=== PATIENT | male | born 1940 | race African-American/Black ===

== ENCOUNTER 2018-09-25 06:40 | Observation (INO) | payer MEDICARE ==
[2018-09-15 10:13] LABS: BASOPHILS % 0.5 % (0.0-1.0); EOSINOPHILS # (AUTO) 0.1 (0.0-0.4); EOSINOPHILS % 1.3 % (0.0-6.0); HEMATOCRIT 42.8 % (38.2-49.6); HEMOGLOBIN 13.6 g/dL (14.0-18.0); LYMPHOCYTES # (AUTO) 1.2 (1.0-3.2); LYMPHOCYTES % 30.5 % (18.0-39.1); MEAN CORPUSCULAR HEMOGLOBIN 28.3 pg (28-32); MEAN CORPUSCULAR HGB CONC 31.8 g/dL (31-35); MONOCYTES # (AUTO) 0.5 (0.2-0.8); MONOCYTES % 11.5 % (4.4-11.3); NEUTROPHILS # (AUTO) 2.2 (2.1-6.9); NEUTROPHILS % 55.2 % (38.7-80.0); PLATELET COUNT 177 x10e3/uL (140-360); RED BLOOD COUNT 4.81 x10e6/uL (4.3-5.7); RED CELL DISTRIBUTION WIDTH 13.2 % (11.7-14.4)
[2018-09-15 10:27] LABS: ANION GAP 15.5 mmol/L (8-16); BLOOD UREA NITROGEN 14 mg/dL (7-26); BUN/CREATININE RATIO 13 (6-25); CALCIUM 9.3 mg/dL (8.4-10.2); CARBON DIOXIDE 27 mmol/L (22-29); CHLORIDE 104 mmol/L (98-107); CREATININE, SERUM 1.11 mg/dL (0.72-1.25); EST GLOMERULAR FILTRATION RATE > 60 ML/MIN (60-); GLUCOSE 170 mg/dL (74-118); POTASSIUM 4.5 mmol/L (3.5-5.1); SODIUM 142 mmol/L (136-145)
[~2018-09-25] VITALS: Ht 180.3 cm; Wt 114.8 kg
[~2018-09-25 06:40] MED LIST: ASPIRIN325 MG PO; ATORVASTATIN CA20 MG PO; BACLOFEN10 MG PO; CARVEDILOL25 MG PO; CYMBALTA30 MG PO; DICYCLOMINE HCL20 MG PO; FINASTERIDE5 MG PO; FLOMAX0.4 MG PO; GLIMEPIRIDE2 MG PO; KETOCONAZOLE15 GM TOP; LEVOTHYROXINE50 MCG PO; LOSARTAN POTAS100 MG PO; MONTELUKAST SOD10 MG PO; MYRBETRIQ50 MG PO; OMEPRAZOLE40 MG PO; TRAZODONE HCL50 MG PO; TRULICITY SC; ULTRAM50 MG PO; VESICARE5 MG PO
--- OUTSIDE RECORDS SUMMARY | 2018-09-25 06:44 | XMS REPORT | CCD ---
Author Author Auto Generated Organization [facility] Address Unknown Phone Unavailable Care Team Providers Care Exceptional Children Teacher Assistant Name Role Phone Yovani Seth Santiago CP Allergies, Adverse Reactions, Alerts Substance Reaction Status NKDA Active Medications Medication Instructions Start Date End Date Status [place] 5/325 oral 1 tab, PO, Q4-6H, PRN, 12 tab, as 05/22/2011 Ordered tablet needed for pain, Substitution Allowed, Maintenance Flexeril 10 mg oral 10 mg, PO, TID, PRN, 30 tab, Muscle 05/22/2011 06/01/2011 Ordered tablet Spasm, Substitution Allowed morphine Sulfate 4 mg, Route: IM, ONCE, Priority: 05/22/2011 05/22/2011 Completed STAT, Start date: 05/22/11 23:03:00, Stop date: 05/22/11 23:03:00 Vital Signs Most recent to oldest [Reference Range]: 1 Height 180.34 cm (05/22/2011 21:59:00) Weight 109.091 kg (05/22/2011 21:59:00)
--- OUTSIDE RECORDS SUMMARY | 2018-09-25 06:44 | XMS REPORT | Continuity of Care Document ---
Author Author [employer] Address Unknown Phone Unavailable Care Team Providers Care Reducer Name Role Phone [employer] Unavailable Unavailable Problems Problem Status Onset Date Classification Date Reported Comments Source 599.70 - HEMATURIA NOS Active 08/20/2011 [facility] Outpatient Imaging [facility] BLOOD IN URINE Active 07/29/2011 [facility] OFF BALANCE Active 05/21/2011 [facility] LEFT NECK PAIN Active 05/19/2011 [facility] RT SHOULDER PAIN Active [facility] [place] Medications Medication Details Route Status Patient Instructions Ordering Provider Order Date Source Singulair Substitution Allowed Active 07/30/2011 [facility] [place] 5/325 oral tablet Substitution Allowed, Maintenance Active 07/30/2011 [facility] meloxicam Substitution Allowed Active 07/30/2011 [facility] [place] 5/325 oral tablet 1 tab, PO, Q4-6H, PRN, 12 tab, as needed for pain, Substitution Allowed, Maintenance PO Active [facility] 05/23/2011 [facility] Flexeril 10 mg oral tablet 10 mg, PO, TID, PRN, 30 tab, Muscle Spasm, Substitution Allowed PO Active [facility] 05/23/2011 [facility] morphine Sulfate 4 mg, Route: IM, ONCE, Priority: STAT, Start date: 05/22/11 23:03:00, Stop date: 05/22/11 23:03:00 IM No Longer Active [facility] 05/23/2011 [facility] labetalol 10 mg, Route: IVP, Drug form: INJ, ONCE, Priority: STAT, Start date: 05/19/11 14:07:00, Stop date: 05/19/11 14:07:00 IVP No Longer Active José Antonio 05/19/2011 [facility] Saline Flush 0.9% 5 ml, Route: IVP, Drug Form: INJ, PRN, PRN Line Flush, Start date: 05/19/11 10:20:00, Duration: 24 hr, Stop date: 05/20/11 10:19:00 IVP No Longer Active José Antonio 05/19/2011 [facility] metFORmin Substitution Allowed Active 05/19/2011 [facility] Coreg Substitution Allowed Active 05/19/2011 [facility] Lipitor Substitution Allowed Active 05/19/2011 [facility] Allergies, Adverse Reactions, Alerts No Known Medication Allergies Immunizations No Data Provided for This Section Results Order Name Results Value Reference Range Date Interpretation Comments Source URINALYSIS UA Bacteria Occasional /HPF (07/30/2011 00:15:00) None Seen 07/30/2011 Normal [facility] URINALYSIS UA RBC 6-10 /HPF *ABN* (07/30/2011 00:15:00) 0 - 2 07/30/2011 ABN [facility] URINALYSIS UA Sq Epi Rare /LPF (07/30/2011 00:15:00) Few 07/30/2011 Normal [facility] URINALYSIS UA WBC 0-2 /HPF (07/30/2011 00:15:00) None Seen 07/30/2011 Normal [facility] URINALYSIS UA Nitrite Negative (07/30/2011 00:15:00) Negative 07/30/2011 Normal [facility] URINALYSIS UA Leuk Est Negative (07/30/2011 00:15:00) Negative 07/30/2011 Normal [facility] URINALYSIS UA Glucose Negative (07/30/2011 00:15:00) Negative 07/30/2011 Normal [facility] URINALYSIS UA Ketones Negative *NA* (07/30/2011 00:15:00) Negative 07/30/2011 NA [facility] URINALYSIS UA Bili Negative *NA* (07/30/2011 00:15:00) Negative 07/30/2011 NA [facility] URINALYSIS UA Blood Large *ABN* (07/30/2011 00:15:00) Negative 07/30/2011 ABN [facility] URINALYSIS UA Urobilinogen 0.2 0.1 - 1.0 07/30/2011 Normal [facility] URINALYSIS UA Turbidity Clear (07/30/2011 00:15:00) Clear 07/30/2011 Normal [facility] URINALYSIS UA Spec Grav <=1.030 07/30/2011 NA [facility] URINALYSIS UA pH 7.0 5.0 - 8.0 07/30/2011 Normal [facility] URINALYSIS UA Protein Trace *ABN* (07/30/2011 00:15:00) Negative 07/30/2011 ABN [facility] URINALYSIS UA Color pale pink Yellow 07/30/2011 NA [facility] URINALYSIS UA Bacteria Occasional /HPF (05/19/2011 13:20:00) None Seen 05/19/2011 Normal [facility] URINALYSIS UA RBC 0-2 /HPF (05/19/2011 13:20:00) 0 - 2 05/19/2011 Normal [facility] URINALYSIS UA WBC 0-2 /HPF (05/19/2011 13:20:00) None Seen 05/19/2011 Normal [facility] URINALYSIS UA Sq Epi Few /LPF (05/19/2011 13:20:00) Few 05/19/2011 Normal [facility] URINALYSIS UA Blood Negative (05/19/2011 13:20:00) Negative 05/19/2011 Normal [facility] URINALYSIS UA Urobilinogen 0.2 0.1 - 1.0 05/19/2011 Normal [facility] URINALYSIS UA Nitrite Negative (05/19/2011 13:20:00) Negative 05/19/2011 Normal [facility] URINALYSIS UA Leuk Est Negative (05/19/2011 13:20:00) Negative 05/19/2011 Normal [facility] URINALYSIS UA Glucose Negative (05/19/2011 13:20:00) Negative 05/19/2011 Normal [facility] URINALYSIS UA Protein 100 mg/dL *ABN* (05/19/2011 13:20:00) Negative 05/19/2011 ABN [facility] URINALYSIS UA Bili Negative *NA* (05/19/2011 13:20:00) Negative 05/19/2011 NA [facility] URINALYSIS UA Ketones Negative *NA* (05/19/2011 13:20:00) Negative 05/19/2011 NA [facility] URINALYSIS UA Spec Grav 1.025 <=1.030 05/19/2011 Normal [facility] URINALYSIS UA pH 6.5 5.0 - 8.0 05/19/2011 Normal [facility] URINALYSIS UA Color Yellow *NA* (05/19/2011 13:20:00) Yellow 05/19/2011 NA [facility] URINALYSIS UA Turbidity Clear (05/19/2011 13:20:00) Clear 05/19/2011 Normal [facility] CHEMISTRY CK MB 2.4 0.5 - 3.6 05/19/2011 Normal [facility] CHEMISTRY Potassium Lvl 4.3 3.5 - 5.1 05/19/2011 Normal [facility] CHEMISTRY CO2 32 24 - 32 05/19/2011 Normal [facility] CHEMISTRY Calcium Lvl 8.6 8.5 - 10.5 05/19/2011 Normal [facility] CHEMISTRY Chloride Lvl 102 95 - 109 05/19/2011 Normal [facility] CHEMISTRY Sodium Lvl 140 135 - 145 05/19/2011 Normal [facility] CHEMISTRY BUN 14 7 - 22 05/19/2011 Normal [facility] CHEMISTRY Creatinine Lvl 1.1 0.5 - 1.4 05/19/2011 Normal [facility] CHEMISTRY A/G Ratio 1.1 0.7 - 1.6 05/19/2011 Normal [facility] CHEMISTRY AGAP 10.3 10.0 - 20.0 05/19/2011 Normal [facility] CHEMISTRY B/C Ratio 13 6 - 25 05/19/2011 Normal [facility] CHEMISTRY Globulin 3.4 2.0 - 4.0 05/19/2011 Normal [facility] CHEMISTRY AST 14 0 - 37 05/19/2011 Normal [facility] CHEMISTRY Bili Total 0.5 0.2 - 1.3 05/19/2011 Normal [facility] CHEMISTRY Total Protein 7.1 6.4 - 8.4 05/19/2011 Normal [facility] CHEMISTRY ALT 33 0 - 65 05/19/2011 Normal [facility] CHEMISTRY Alk Phos 44 39 - 136 05/19/2011 Normal [facility] CHEMISTRY Albumin Lvl 3.7 3.5 - 5.0 05/19/2011 Normal [facility] CHEMISTRY Glucose Lvl 145 70 - 99 05/19/2011 [facility] <sup>2</sup>Interpretive Data: Adult reference range values reflect the clinical guidelines of the [place] [employer]. [facility] CHEMISTRY Total CK 247 12 - 191 05/19/2011 HI [facility] CHEMISTRY Troponin-I <0.02 0.00 - 0.40 05/19/2011 Normal [facility] CHEMISTRY CK MB Index 1.0 0.0 - 2.5 05/19/2011 Normal [facility] HEMATOLOGY MCHC 32.9 32.0 - 36.0 05/19/2011 Normal [facility] HEMATOLOGY MCH 31.0 27.0 - 31.0 05/19/2011 Normal [facility] HEMATOLOGY MCV 94.2 80.0 - 94.0 05/19/2011 HI [facility] HEMATOLOGY WBC 8.2 3.7 - 10.4 05/19/2011 Normal [facility] HEMATOLOGY MPV 7.9 7.4 - 10.4 05/19/2011 Normal [facility] HEMATOLOGY Platelet 215 133 - 450 05/19/2011 Normal [facility] HEMATOLOGY RDW 13.0 11.5 - 14.5 05/19/2011 Normal [facility] HEMATOLOGY Hct 46.9 42.0 - 54.0 05/19/2011 Normal [facility] Hgb 15.4 14.0 - 18.0 05/19/2011 Normal [facility] RBC 4.98 4.70 - 6.10 05/19/2011 Normal [facility] PTT 24.8 22.9 - 35.8 05/19/2011 Normal <sup>4</sup>Interpretive Data: Heparin Therapeutic Range: 57 - 92 Seconds [facility] HEMATOLOGY PT 13.5 12.0 - 14.7 05/19/2011 Normal [facility] HEMATOLOGY INR 1.03 0.85 - 1.17 05/19/2011 Normal <sup>3</sup>Interpretive Data: RECOMMENDED RANGES FOR PROTIME INR: 2.0-3.0 for most medical and surgical thromboembolic states. 2.5-3.5 for artificial heart valves and recurrent embolism. INR SHOULD BE USED ONLY FOR PATIENTS ON STABLE ANTICOAGULANT THERAPY. [facility] HEMATOLOGY Monocytes # 0.6 0.0 - 0.8 05/19/2011 Normal [facility] HEMATOLOGY Lymphocytes # 1.1 1.0 - 5.5 05/19/2011 Normal [facility] HEMATOLOGY Eosinophils # 0.0 0.0 - 0.5 05/19/2011 Normal [facility] HEMATOLOGY Basophils # 0.0 0.0 - 0.2 05/19/2011 Normal [facility] HEMATOLOGY Segs-Bands # 6.5 1.5 - 8.1 05/19/2011 Normal [facility] HEMATOLOGY Basophils 0.2 0.0 - 1.0 05/19/2011 Normal [facility] HEMATOLOGY Eosinophils 0.2 0.0 - 4.0 05/19/2011 Normal [facility] HEMATOLOGY Segs 79.5 45.0 - 75.0 05/19/2011 HI [facility] HEMATOLOGY Monocytes 6.8 2.0 - 12.0 05/19/2011 Normal [facility] HEMATOLOGY Lymphocytes 13.3 20.0 - 40.0 05/19/2011 LOW [facility] Microbiology Culture: Blood 05/19/2011 [facility] Microbiology Culture: Blood 05/19/2011 [facility] BEDSIDE GLUCOSE TESTING Gluc POC Lifscn 168 70 - 99 05/19/2011 [facility] <sup>1</sup>Interpretive Data: Upper Reportable Limit: 200 mg/dL. [facility] Pathology Reports No Data Provided for This Section Diagnostic Reports Report Value Date Source Retroperitoneal Complete US Name: LARON LAMBERT : 1940 Ordering Physician: Thony Barillas Retroperitoneal Complete US : Nov 02, 2013 11:45:00 AM. CLINICAL INDICATION: Chronic kidney disease stage II Comparison Examination: None. FINDINGS: The right kidney measures 12.7 x 5.6 x 5.0 cm in length. The left kidney measures 13.8 x 5.4 x 5.0 cm in length. There is normal renal contour and morphology. There is slightly increased renal parenchymal echotexture consistent with medical renal disease. The right renal cortex measures 1.7 cm in thickness. The left renal cortex measures 1.9 cm in thickness. Several small anechoic cysts are noted within the left kidney. Both measure 1.6 cm in maximum dimension. There are no echogenic foci noted to suggest calculi. There are no perinephric fluid collections. There is no hydronephrosis or proximal ureterectasis. The Doppler images of the kidneys are grossly unremarkable. The visualized lower abdominal aorta, proximal common iliac arteries, inferior vena cava and retroperitoneal regions appear unremarkable. The urinary bladder is sonographically unremarkable. Bilateral ureteral jets were visualized. IMPRESSION: 1. Slightly echogenic kidneys consistent with medical renal disease. 2. No hydronephrosis. SL: 23 11/02/2013 [facility] Outpatient Imaging [facility] Consultation Notes No Data Provided for This Section Discharge Summaries No Data Provided for This Section History and Physicals No Data Provided for This Section Vital Signs Vital Sign Value Date Comments Source Weight 106.818 07/30/2011 [facility] Height 177.80 cm 07/30/2011 [facility] Weight 109.091 05/23/2011 [facility] Height 180.34 cm 05/23/2011 [facility] Height 180.34 cm 05/19/2011 [facility] Weight 106.818 05/19/2011 [facility] Encounters Location Location Details Encounter Type Encounter Number Reason For Visit Attending Provider ADM Date DC Date Status Source Not Sent Emergency [id number] JERSON CARMONA 05/19/2011 05/19/2011 Discharged [facility] Not Sent Emergency [id number] JOSELITO BAJWA 05/22/2011 05/22/2011 Discharged [facility] Not Sent Emergency [id number] ANKUR JAVED 07/29/2011 07/30/2011 Discharged [facility] OD [id number] 599.70 - HEMATURIA NOS ALO CORTEZ 08/22/2011 Active [facility] Outpatient Imaging [facility] Outpatient Imaging [facility] Out[facility] Diag Services [id number] Thony Bhatton 11/02/2013 11/03/2013 [facility] Outpatient Imaging [facility] [place] [facility] Patients [id number] Alessandra Mak 11/07/2015 12/07/2015 [facility] [place] Procedures No Data Provided for This Section Assessment and Plan No Data Provided for This Section Plan of Care No Data Provided for This Section Social History Social History Date Source No data available for this section 12/07/2015 [facility] [place] Family History No Data Provided for This Section Advance Directives No Data Provided for This Section Functional Status No Data Provided for This Section
--- OUTSIDE RECORDS SUMMARY | 2018-09-25 06:45 | XMS REPORT | Summary of Care ---
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
--- OUTSIDE RECORDS SUMMARY | 2018-09-25 06:45 | XMS REPORT | CCD ---
Author Author Auto Generated Organization [facility] Address Unknown Phone Unavailable Care Team Providers Care Lecturer In Marketing Name Role Phone Leta Bienvenido Barth CP Allergies, Adverse Reactions, Alerts Substance Reaction Status NKDA Active Medications Medication Instructions Start Date End Date Status Singulair Substitution Allowed 07/30/2011 Ordered [place] 5/325 oral Substitution Allowed, Maintenance 07/30/2011 Ordered tablet meloxicam Substitution Allowed 07/30/2011 Ordered Vital Signs Most recent to oldest [Reference Range]: 1 Height 177.80 cm (07/29/2011 23:12:00) Weight 106.818 kg (07/29/2011 23:12:00) Results URINALYSIS Most recent to oldest [Reference Range]: 1 UA Turbidity [Clear] Clear (07/30/2011 00:15:00) UA Color [Yellow] pale pink *NA* (07/30/2011 00:15:00) UA pH [5.0-8.0] 7.0 (07/30/2011 00:15:00) UA Spec Grav [<=1.030] <=1.005 *NA* (07/30/2011 00:15:00) UA Glucose [Negative] Negative (07/30/2011 00:15:00) UA Blood [Negative] Large *ABN* (07/30/2011 00:15:00) UA Ketones [Negative] Negative *NA* (07/30/2011 00:15:00) UA Protein [Negative] Trace *ABN* (07/30/2011 00:15:00) UA Urobilinogen [0.1-1.0 EU/dL] 0.2 EU/dL (07/30/2011 00:15:00) UA Bili [Negative] Negative *NA* (07/30/2011 00:15:00) UA Leuk Est [Negative] Negative (07/30/2011 00:15:00) UA Nitrite [Negative] Negative (07/30/2011 00:15:00) UA WBC [None Seen /HPF] 0-2 /HPF (07/30/2011 00:15:00) UA RBC [0-2 /HPF] 6-10 /HPF *ABN* (07/30/2011 00:15:00) UA Bacteria [None Seen /HPF] Occasional /HPF (07/30/2011 00:15:00) UA Sq Epi [Few /LPF] Rare /LPF (07/30/2011 00:15:00)
--- OUTSIDE RECORDS SUMMARY | 2018-09-25 06:45 | XMS REPORT | CCD ---
Author Author Auto Generated Organization [facility] Address Unknown Phone Unavailable Care Team Providers Care Director Engineering Name Role Phone Hayes Chou CP Allergies, Adverse Reactions, Alerts Substance Reaction Status NKDA Active Medications Medication Instructions Start Date End Date Status metFORmin Substitution Allowed 05/19/2011 Ordered Coreg Substitution Allowed 05/19/2011 Ordered Lipitor Substitution Allowed 05/19/2011 Ordered Saline Flush 0.9% 5 ml, Route: IVP, Drug Form: INJ, 05/19/2011 05/19/2011 Discontinued PRN, PRN Line Flush, Start date: 05/19/11 10:20:00, Duration: 24 hr, Stop date: 05/20/11 10:19:00 labetalol 10 mg, Route: IVP, Drug form: INJ, 05/19/2011 05/19/2011 Completed ONCE, Priority: STAT, Start date: 05/19/11 14:07:00, Stop date: 05/19/11 14:07:00 Vital Signs Most recent to oldest [Reference Range]: 1 Height 180.34 cm (05/19/2011 08:44:00) Weight 106.818 kg (05/19/2011 08:44:00) Results BEDSIDE GLUCOSE TESTING Most recent to oldest [Reference Range]: 1 Gluc POC Lifscn [70-99 mg/dL] 168 mg/dL 1 *HI* (05/19/2011 09:23:00) 1Interpretive Data: Upper Reportable Limit: 200 mg/dL. URINALYSIS Most recent to oldest [Reference Range]: 1 UA Turbidity [Clear] Clear (05/19/2011 13:20:00) UA Color [Yellow] Yellow *NA* (05/19/2011 13:20:00) UA pH [5.0-8.0] 6.5 (05/19/2011 13:20:00) UA Spec Grav [<=1.030] 1.025 (05/19/2011 13:20:00) UA Glucose [Negative] Negative (05/19/2011 13:20:00) UA Blood [Negative] Negative (05/19/2011 13:20:00) UA Ketones [Negative] Negative *NA* (05/19/2011 13:20:00) UA Protein [Negative mg/dL] 100 mg/dL *ABN* (05/19/2011 13:20:00) UA Urobilinogen [0.1-1.0 EU/dL] 0.2 EU/dL (05/19/2011 13:20:00) UA Bili [Negative] Negative *NA* (05/19/2011 13:20:00) UA Leuk Est [Negative] Negative (05/19/2011 13:20:00) UA Nitrite [Negative] Negative (05/19/2011 13:20:00) UA WBC [None Seen /HPF] 0-2 /HPF (05/19/2011 13:20:00) UA RBC [0-2 /HPF] 0-2 /HPF (05/19/2011 13:20:00) UA Bacteria [None Seen /HPF] Occasional /HPF (05/19/2011 13:20:00) UA Sq Epi [Few /LPF] Few /LPF (05/19/2011 13:20:00) CHEMISTRY Most recent to oldest [Reference Range]: 1 Sodium Lvl [135-145 mEq/L] 140 mEq/L (05/19/2011 10:40:00) Potassium Lvl [3.5-5.1 mEq/L] 4.3 mEq/L (05/19/2011 10:40:00) Chloride Lvl [95-109 mEq/L] 102 mEq/L (05/19/2011 10:40:00) CO2 [24-32 mEq/L] 32 mEq/L (05/19/2011 10:40:00) AGAP [10.0-20.0 mEq/L] 10.3 mEq/L (05/19/2011 10:40:00) Creatinine Lvl [0.5-1.4 mg/dL] 1.1 mg/dL (05/19/2011 10:40:00) BUN [7-22 mg/dL] 14 mg/dL (05/19/2011 10:40:00) B/C Ratio [6-25] 13 (05/19/2011 10:40:00) Glucose Lvl [70-99 mg/dL] 145 mg/dL 2 *HI* (05/19/2011 10:40:00) Total Protein [6.4-8.4 g/dL] 7.1 g/dL (05/19/2011 10:40:00) Albumin Lvl [3.5-5.0 g/dL] 3.7 g/dL (05/19/2011 10:40:00) Globulin [2.0-4.0 g/dL] 3.4 g/dL (05/19/2011 10:40:00) A/G Ratio [0.7-1.6] 1.1 (05/19/2011 10:40:00) Calcium Lvl [8.5-10.5 mg/dL] 8.6 mg/dL (05/19/2011 10:40:00) ALT [0-65 U/L] 33 U/L (05/19/2011 10:40:00) AST [0-37 U/L] 14 U/L (05/19/2011 10:40:00) Alk Phos [39-136 U/L] 44 U/L (05/19/2011 10:40:00) Bili Total [0.2-1.3 mg/dL] 0.5 mg/dL (05/19/2011 10:40:00) Total CK [12-191 U/L] 247 U/L *HI* (05/19/2011 10:40:00) CK MB [0.5-3.6 ng/mL] 2.4 ng/mL (05/19/2011 10:40:00) CK MB Index [0.0-2.5] 1.0 (05/19/2011 10:40:00) Troponin-I [0.00-0.40 ng/mL] <0.02 ng/mL (05/19/2011 10:40:00) 2Interpretive Data: Adult reference range values reflect the clinical guidelinesof the [employer] [employer]. HEMATOLOGY Most recent to oldest [Reference Range]: 1 WBC [3.7-10.4 K/CMM] 8.2 K/CMM (05/19/2011 10:40:00) RBC [4.70-6.10 M/CMM] 4.98 M/CMM (05/19/2011 10:40:00) Hgb [14.0-18.0 g/dL] 15.4 g/dL (05/19/2011 10:40:00) Hct [42.0-54.0 %] 46.9 % (05/19/2011 10:40:00) MCV [80.0-94.0 fL] 94.2 fL *HI* (05/19/2011 10:40:00) MCH [27.0-31.0 pg] 31.0 pg (05/19/2011 10:40:00) MCHC [32.0-36.0 g/dL] 32.9 g/dL (05/19/2011 10:40:00) RDW [11.5-14.5 %] 13.0 % (05/19/2011 10:40:00) Platelet [133-450 K/CMM] 215 K/CMM (05/19/2011 10:40:00) MPV [7.4-10.4 fL] 7.9 fL (05/19/2011 10:40:00) Segs [45.0-75.0 %] 79.5 % *HI* (05/19/2011 10:40:00) Lymphocytes [20.0-40.0 %] 13.3 % *LOW* (05/19/2011 10:40:00) Monocytes [2.0-12.0 %] 6.8 % (05/19/2011 10:40:00) Eosinophils [0.0-4.0 %] 0.2 % (05/19/2011 10:40:00) Basophils [0.0-1.0 %] 0.2 % (05/19/2011 10:40:00) Segs-Bands # [1.5-8.1 K/CMM] 6.5 K/CMM (05/19/2011 10:40:00) Lymphocytes # [1.0-5.5 K/CMM] 1.1 K/CMM (05/19/2011 10:40:00) Monocytes # [0.0-0.8 K/CMM] 0.6 K/CMM (05/19/2011 10:40:00) Eosinophils # [0.0-0.5 K/CMM] 0.0 K/CMM (05/19/2011 10:40:00) Basophils # [0.0-0.2 K/CMM] 0.0 K/CMM (05/19/2011 10:40:00) PT [12.0-14.7 seconds] 13.5 seconds (05/19/2011 10:40:00) INR [0.85-1.17] 1.03 3 (05/19/2011 10:40:00) PTT [22.9-35.8 seconds] 24.8 seconds 4 (05/19/2011 10:40:00) 3Interpretive Data: RECOMMENDED RANGES FOR PROTIME INR: 2.0-3.0 for most medical and surgical thromboembolic states. 2.5-3.5 for artificial heart valves and recurrent embolism.INR SHOULD BE USED ONLY FOR PATIENTS ON STABLE ANTICOAGULANT THERAPY. 4Interpretive Data: Heparin Therapeutic Range: 57 - 92 Seconds Microbiology Reports PROCEDURE:Culture: Blood STATUS: In Progress BODY SITE: LAC COLLECTED DATE/TIME: 05/19/2011 10:40:00 SOURCE: Blood FREE TEXT SOURCE: PRELIMINARY REPORTS Preliminary Report No Growth; Holding Preliminary Report No Growth At 1 Day PROCEDURE:Culture: Blood STATUS: In Progress BODY SITE: Left Arm COLLECTED DATE/TIME: 05/19/2011 10:14:00 SOURCE: Blood FREE TEXT SOURCE: PRELIMINARY REPORTS Preliminary Report No Growth At 1 Day Preliminary Report No Growth; Holding
--- OUTSIDE RECORDS SUMMARY | 2018-09-25 06:45 | XMS REPORT ---
Author Author [facility] Address Unknown Phone Unavailable Care Team Providers Care Plant Attendant Or Assistant Operator Name Role Phone Alfredo BELL Unavailable Unavailable Payers Payer Name Policy Type Policy Number Effective Date Expiration Date Problems This patient has no known problems. Allergies, Adverse Reactions, Alerts Allergy Name Allergy Type Status Severity Reaction(s) Onset Date Inactive Date Treating Clinician Comments No Known Allergies DA Active U 2010-09-11 00:00:00 Medications This patient has no known medications. Results Test Description Test Time Test Comments Text Results Atomic Results Result Comments CHEST 2 VIEWS 2018-06-09 12:41:00 [place] [address] Patient Name: LARON LAMBERT MR #: [id number] : 1940 Age/Sex: 78/M Req #: [id number] Adm Physician: Ordered by: JOSE BELL MD Report #: [id number] Location: OR Room/Bed: Procedure: [id number] DX/CHEST 2 VIEWS Exam Date: 06/09/18 Exam Time: 1040 REPORT STATUS: Signed EXAM: CHEST 2 VIEWS DATE: 06/09/2018 10:16 AM INDICATION:Bladder neck obstruction, preop bladder surgery COMPARISON: None FINDINGS: Lines and tubes: None Heart size normal. No focal pulmonary opacity, pleural effusion or pneumothorax. There are small calcified granulomata at the right lung base. Upper abdomen unremarkable. Air beneath the left diaphragm is compatible with interposed bowel. There are degenerative changes in the spine. IMPRESSION: No evidence for acute disease. Signed by: Dr. Taylor Graff M.D. on 06/09/2018 12:43 PM Dictated By: TAYLOR GRAFF MD 1243 Transcribed By: DAPHNE on 06/09/18 1243 COPY TO: JOSE BELL MD BASIC METABOLIC PANEL 2018-03-31 18:21:00 SODIUM (test code=NA) 135 mmol/L 137-145 POTASSIUM (test code=K) 4.1 mmol/L 3.4-5.0 CHLORIDE (test code=CL) 99 mmol/L 98-107 CARBON DIOXIDE (test code=CO2) 30 mmol/L 22-30 GLUCOSE (test code=GLU) 143 mg/dL 74-106 BLOOD UREA NITROGEN (test code=BUN) 20 mg/dL 9-20 GLOMERULAR FILTRATION RATE (test code=GFR) >=60 max estimate >60 The estimated glomerular filtration rate is computed usingpatient race, age (>18), sex, and serum creatinine. If anyof the needed data elements are missing the Laboratory cannot compute an estimation of the glomerular filtration rate. CREATININE (test code=CREAT) 1.1 mg/dL 0.7-1.3 CALCIUM (test code=CA) 8.9 mg/dL 8.4-10.2 LIVER FUNCTION [id number] 18:21:00* Test Item Value Reference Range Comments TOTAL PROTEIN (test code=PROT) 6.3 g/dL 6.3-8.2 ALBUMIN (test code=ALB) 3.6 g/dL 3.5-5.0 BILIRUBIN TOTAL (test code=BILT) 0.3 mg/dL 0.2-1.3 BILIRUBIN CONJUGATED (test code=BILCON) 0 mg/dL 0-0.3 ~~~~~~~~~~~~~~~~~~~~~~~~~~~~~~~~~~~~~~~~~~~~~~~~~~~~~~~~~~~~CONJUGATED BILIRUBIN IS THE REPLACEMENT ASSAY FOR DIRECTBILIRUBIN.~~~~~~~~~~~~~~~~~~~~~~~~~~~~~~~~~~~~~~~~~~~~~~~~~~~~~~~~~~~~ BILIRUBIN UNCONJUGATED (test code=BILUNC) 0.3 mg/dL 0-1.1 SGOT/AST (test code=AST) 22 U/L 15-46 SGPT/ALT (test code=ALT) 38 U/L 13-69 ALKALINE PHOSPHATASE (test code=ALKP) 57 U/L 38-126 [id number] 18:21:00* Test Item Value Reference Range Comments LIPASE (test code=LIP) 414 U/L 23-300 [id number] 18:21:00* Test Item Value Reference Range Comments MAGNESIUM (test code=MAG) 1.3 mg/dL 1.6-2.3 NT PRO-BRAIN NATRIURETIC [id number] 18:21:00* Test Item Value Reference Range Comments NT PRO-BRAIN NATRIURETIC PEPTI (test code=PROBNP) 411 pg/mL 0-299 ~~~~~~~~~~~~~~~~~~~~~~~~~~~~~~~~~~~~~~~~~~~~~~~~~~~~~~~~~~~~NT PRO-BNP IS THE REPLACEMENT ASSAY FOR BNP.~~~~~~~~~~~~~~~~~~~~~~~~~~~~~~~~~~~~~~~~~~~~~~~~~~~~~~~~~~~~RULE-IN CUT POINTS FOR PATIENTS WITH SUSPECTED ACUTECONGESTIVE HEART FAILURE:<50 yrs old: >450 pg/mL50-75 yrs old: >900 pg/mL>75 yrs old: >1800 pg/mLA positive bias may occur on patients taking BIOTINsupplements. BASIC METABOLIC [id number] 18:14:00* Test Item Value Reference Range Comments SODIUM (test code=NA) 135 mmol/L 137-145 POTASSIUM (test code=K) 4.1 mmol/L 3.4-5.0 CHLORIDE (test code=CL) 99 mmol/L 98-107 CARBON DIOXIDE (test code=CO2) 30 mmol/L 22-30 GLUCOSE (test code=GLU) 143 mg/dL 74-106 BLOOD UREA NITROGEN (test code=BUN) 20 mg/dL 9-20 GLOMERULAR FILTRATION RATE (test code=GFR) >=60 max estimate >60 The estimated glomerular filtration rate is computed usingpatient race, age (>18), sex, and serum creatinine. If anyof the needed data elements are missing the Laboratory cannot compute an estimation of the glomerular filtration rate. CREATININE (test code=CREAT) 1.1 mg/dL 0.7-1.3 CALCIUM (test code=CA) 8.9 mg/dL 8.4-10.2 LIVER FUNCTION [id number] 18:14:00* Test Item Value Reference Range Comments TOTAL PROTEIN (test code=PROT) 6.3 g/dL 6.3-8.2 ALBUMIN (test code=ALB) 3.6 g/dL 3.5-5.0 BILIRUBIN TOTAL (test code=BILT) 0.3 mg/dL 0.2-1.3 BILIRUBIN CONJUGATED (test code=BILCON) 0 mg/dL 0-0.3 ~~~~~~~~~~~~~~~~~~~~~~~~~~~~~~~~~~~~~~~~~~~~~~~~~~~~~~~~~~~~CONJUGATED BILIRUBIN IS THE REPLACEMENT ASSAY FOR DIRECTBILIRUBIN.~~~~~~~~~~~~~~~~~~~~~~~~~~~~~~~~~~~~~~~~~~~~~~~~~~~~~~~~~~~~ BILIRUBIN UNCONJUGATED (test code=BILUNC) 0.3 mg/dL 0-1.1 SGOT/AST (test code=AST) 22 U/L 15-46 SGPT/ALT (test code=ALT) 38 U/L 13-69 ALKALINE PHOSPHATASE (test code=ALKP) 57 U/L 38-126 [id number] 18:14:00* Test Item Value Reference Range Comments LIPASE (test code=LIP) 414 U/L 23-300 [id number] 18:14:00* Test Item Value Reference Range Comments MAGNESIUM (test code=MAG) 1.3 mg/dL 1.6-2.3 NT PRO-BRAIN NATRIURETIC [id number] 18:14:00* Test Item Value Reference Range Comments NT PRO-BRAIN NATRIURETIC PEPTI (test code=PROBNP) pg/mL 0-299 BASIC METABOLIC [id number] 18:13:00* Test Item Value Reference Range Comments SODIUM (test code=NA) 135 mmol/L 137-145 POTASSIUM (test code=K) 4.1 mmol/L 3.4-5.0 CHLORIDE (test code=CL) 99 mmol/L 98-107 CARBON DIOXIDE (test code=CO2) 30 mmol/L 22-30 GLUCOSE (test code=GLU) 143 mg/dL 74-106 BLOOD UREA NITROGEN (test code=BUN) 20 mg/dL 9-20 GLOMERULAR FILTRATION RATE (test code=GFR) >=60 max estimate >60 The estimated glomerular filtration rate is computed usingpatient race, age (>18), sex, and serum creatinine. If anyof the needed data elements are missing the Laboratory cannot compute an estimation of the glomerular filtration rate. CREATININE (test code=CREAT) 1.1 mg/dL 0.7-1.3 CALCIUM (test code=CA) 8.9 mg/dL 8.4-10.2 LIVER FUNCTION [id number] 18:13:00* Test Item Value Reference Range Comments TOTAL PROTEIN (test code=PROT) 6.3 g/dL 6.3-8.2 ALBUMIN (test code=ALB) 3.6 g/dL 3.5-5.0 BILIRUBIN TOTAL (test code=BILT) 0.3 mg/dL 0.2-1.3 BILIRUBIN CONJUGATED (test code=BILCON) 0 mg/dL 0-0.3 ~~~~~~~~~~~~~~~~~~~~~~~~~~~~~~~~~~~~~~~~~~~~~~~~~~~~~~~~~~~~CONJUGATED BILIRUBIN IS THE REPLACEMENT ASSAY FOR DIRECTBILIRUBIN.~~~~~~~~~~~~~~~~~~~~~~~~~~~~~~~~~~~~~~~~~~~~~~~~~~~~~~~~~~~~ BILIRUBIN UNCONJUGATED (test code=BILUNC) 0.3 mg/dL 0-1.1 SGOT/AST (test code=AST) 22 U/L 15-46 SGPT/ALT (test code=ALT) 38 U/L 13-69 ALKALINE PHOSPHATASE (test code=ALKP) 57 U/L 38-126 [id number] 18:13:00* Test Item Value Reference Range Comments LIPASE (test code=LIP) U/L 23-300 [id number] 18:13:00* Test Item Value Reference Range Comments MAGNESIUM (test code=MAG) mg/dL 1.6-2.3 NT PRO-BRAIN NATRIURETIC [id number] 18:13:00* Test Item Value Reference Range Comments NT PRO-BRAIN NATRIURETIC PEPTI (test code=PROBNP) pg/mL 0-299 PROTHROMBIN [id number] 17:59:00* Test Item Value Reference Range Comments PROTHROMBIN TIME PATIENT (test code=PTP) 13.3 SECONDS 9.2-12.1 INTERNATIONAL NORMAL RATIO (test code=INR) 1.2 The INR is to be used only for monitoring ORAL ANTICOAGULANTTHERAPY. Indication INR Value1. Prophylaxis/treatment of: Venous Thrombosis, Pulmonary Embolism 2.0 - 3.02. Prevention of systemic embolism from: Tissue heart valves 2.0 - 3.0 Acute myocardial infarction (to present systemic embolism)* 2.0 - 3.0 Valvular heart disease 2.0 - 3.0 Atrial fibrillation 2.0 - 3.03. Mechanical prosthetic valves (high risk) 2.5 - 3.5 * If oral anticoagulant therapy is elected to preventrecurrent myocardial infarction, an INR of 2.5-3.5 isrecommended, consistent with Food and Drug Administrationrecommendations. THROMBOPLASTIN TIME [id number] 17:59:00* Test Item Value Reference Range Comments THROMBOPLASTIN TIME PARTIAL (test code=PTT) 22.9 SECONDS 23.4-37.0 Therapeutic Range for Heparin EFFECTIVE 08/20/12 Heparin IU/mL aPTT Seconds0.3 64.30.7 88.8 TROPONIN I [id number] 17:54:00* Test Item Value Reference Range Comments TROPONIN I RAPID (test code=TROPIRAP) 0.01 ng/mL 0.00-0.079 ISTAT TROPONIN I CRITERIA0.00-0.08 ng/mL - Negative>0.08 ng/mL - Positive The use of serial sampling and testing protocol is arecommended practice.An elevated troponin level alone is often not sufficient fordiagnosis of myocardial infarction. Troponin results obtained by different assays may vary.Evaluation of the extent of myocardial damage based onincrease of troponin would be valid only if similarmethodology is used. CBC W/AUTO [id number] 17:41:00* Test Item Value Reference Range Comments WHITE BLOOD CELL (test code=WBC) 7.0 x10 3/uL 5.0-12.0 RED BLOOD CELL (test code=RBC) 4.42 x10 6/uL 4.70-6.10 HEMOGLOBIN (test code=HGB) 12.7 g/dL 14.0-18.0 HEMATOCRIT (test code=HCT) 38.5 % 37.0-49.0 MEAN CELL VOLUME (test code=MCV) 87 fL 80-94 MEAN CELL HGB (test code=MCH) 28.7 pg 27-31 MEAN CELL HGB CONCENTRATION (test code=MCHC) 33.0 g/dL 33-37 RED CELL DISTRIBUTION WIDTH (test code=RDW) 13.9 % 11.5-15.5 PLATELET COUNT (test code=PLT) 152 x10 3/uL 130-400 MEAN PLATELET VOLUME (test code=MPV) 10.9 fL 9.4-16.4 NEUTROPHIL % (test code=NT%) 64.7 % 43-65 IMMATURE GRANULOCYTE % (test code=IG%) 0.9 % 0.0-2.0 LYMPHOCYTE % (test code=LY%) 22.5 % 20.5-45.5 MONOCYTE % (test code=MO%) 11.4 % 5.5-11.7 EOSINOPHIL % (test code=EO%) 0.4 % 0.9-2.9 BASOPHIL % (test code=BA%) 0.1 % 0.2-1.0 NUCLEATED RBC % (test code=NRBC%) 0.0 % 0-1.0 NEUTROPHIL # (test code=NT#) 4.52 x10 3/uL 2.2-4.8 IMMATURE GRANULOCYTE # (test code=IG#) 0.06 x10 3/uL 0-0.03 LYMPHOCYTE # (test code=LY#) 1.57 x10 3/uL 1.3-2.9 MONOCYTE # (test code=MO#) 0.80 x10 3/uL 0.3-0.8 EOSINOPHIL # (test code=EO#) 0.03 x10 3/uL 0.0-0.2 BASOPHIL # (test code=BA#) 0.01 x10 3/uL 0.0-0.1 - XR CHEST 1 [id number] 17:03:00 FAX: Gurpreet Gee MD [phone] [place]: St: REG Name: [facility] : [birth year] Age/S: 78/M [address] Unit #: [id number] Loc: [place] [address] Phys: Mumtaz Downey Acct: [id number] Dis Date: Status: REG ER PHONE #: [phone] Exam Date: 03/31/2018 1645 FAX #: [phone] Reason: chest pain EXAMS: CPT CODE: [id number] XR CHEST 1 V 16383 CHEST 1 VIEW CLINICAL INFORMATION: chest pain COMPARISON: February 22, 2017 FINDINGS: The lungs are well expanded. No airspace consolidation is seen. No pneumothorax or pleural effusion is identified. The cardiac silhouette is upper normal in size. The bones are grossly intact. IMPRESSION: No acute cardiopulmonary finding. LOCATION: B2 at 1703 Reported and signed by: Александр Mas MD CC: Gurpreet Gregory Technologist: Katharine Reid Trnscrd Date/Time/By: 03/31/2018 (9257) : By: [email or web address] PAGE 1 Signed Report FAX: Gurpreet Gee MD [phone] [place]: St: REG Name: LARON LAMBERT [facility] : 1940 Age/S: 78/M [address] Unit #: [id number] Loc: [place] [address] Phys: Mumtaz Downey Acct: [id number] Dis Date: Status: REG ER PHONE #: [phone] Exam Date: 03/31/2018 1645 FAX #: [phone] Reason: chest pain EXAMS: CPT CODE: [id number] XR CHEST 1 V [id number] <Continued> Orig Print D/T: S: 03/31/2018 (9033) PAGE 2 Signed Report
--- OUTSIDE RECORDS SUMMARY | 2018-09-25 06:45 | XMS REPORT | CCD ---
Author Author Auto Generated Organization [facility] Address Unknown Phone Unavailable Care Team Providers Care Analysis Specialist Name Role Phone Dawit Johnson CP Allergies, Adverse Reactions, Alerts Substance Reaction Status NKDA Active
--- OUTSIDE RECORDS SUMMARY | 2018-09-25 06:45 | XMS REPORT | Summary of Care ---
Author [facility] Address Unknown Phone Unavailable Encounter HQ Encntr_alias(DAVID) [id number] Date(s): 11/07/15 - 12/06/15 [facility] Discharge Disposition: Home or Self Care Attending Physician: Alessandra Mak MD Vital Signs No data available for this section Problem List No data available for this section Allergies, Adverse Reactions, Alerts Substance Reaction Severity Status NKDA Active Medications No data available for this section Results No data available for this section Immunizations No data available for this section Procedures No data available for this section Social History No data available for this section Assessment and Plan No data available for this section
[2018-09-25] MEDS ORDERED: CEFTRIAXONE SOD 1 GM/NS 50 ML 50 ML IV ONE (08:17)
[2018-09-25] MEDS ORDERED: B&O 60MG R/S 60 MG SUPP PR ONE (09:31)
--- OUTSIDE RECORDS SUMMARY | 2018-09-25 10:18 | XMS REPORT | Continuity of Care Document ---
Author Author [employer] Address Unknown Phone Unavailable Care Team Providers Care Product Owner Name Role Phone [employer] Information [employer] Unavailable Unavailable Problems Problem Status Onset Date Classification Date Reported Comments Source 599.70 - HEMATURIA NOS Active 08/20/2011 [facility] BLOOD IN URINE Active 07/29/2011 [facility] [place] OFF BALANCE Active 05/21/2011 [facility] LEFT NECK PAIN Active 05/19/2011 [facility] [place] RT SHOULDER PAIN Active [facility] [place] Medications Medication Details Route Status Patient Instructions Ordering Provider Order Date Source Singulair Substitution Allowed Active 07/30/2011 [facility] [place] Montgomery 5/325 oral tablet Substitution Allowed, Maintenance Active 07/30/2011 [facility] meloxicam Substitution Allowed Active 07/30/2011 [facility] [place] 5/325 oral tablet 1 tab, PO, Q4-6H, PRN, 12 tab, as needed for pain, Substitution Allowed, Maintenance PO Active [facility] 05/23/2011 [facility] Flexeril 10 mg oral tablet 10 mg, PO, TID, PRN, 30 tab, Muscle Spasm, Substitution Allowed PO Active [facility] 05/23/2011 [facility] morphine Sulfate 4 mg, Route: IM, ONCE, Priority: STAT, Start date: 05/22/11 23:03:00, Stop date: 05/22/11 23:03:00 IM No Longer Active [facility] 05/23/2011 [facility] [place] labetalol 10 mg, Route: IVP, Drug form: INJ, ONCE, Priority: STAT, Start date: 05/19/11 14:07:00, Stop date: 05/19/11 14:07:00 IVP No Longer Active José Antonio 05/19/2011 [facility] Saline Flush 0.9% 5 ml, Route: IVP, Drug Form: INJ, PRN, PRN Line Flush, Start date: 05/19/11 10:20:00, Duration: 24 hr, Stop date: 05/20/11 10:19:00 IVP No Longer Active José Antonio 05/19/2011 [facility] [place] metFORmin Substitution Allowed Active 05/19/2011 [facility] [place] Coreg Substitution Allowed Active 05/19/2011 [facility] [place] Lipitor Substitution Allowed Active 05/19/2011 [facility] [place] Allergies, Adverse Reactions, Alerts No Known Medication Allergies Immunizations No Data Provided for This Section Results Order Name Results Value Reference Range Date Interpretation Comments Source URINALYSIS UA Bacteria Occasional /HPF (07/30/2011 00:15:00) None Seen 07/30/2011 Normal [facility] [place] URINALYSIS UA RBC 6-10 /HPF *ABN* (07/30/2011 00:15:00) 0 - 2 07/30/2011 ABN [facility] [place] URINALYSIS UA Sq Epi Rare /LPF (07/30/2011 00:15:00) Few 07/30/2011 Normal [facility] [place] URINALYSIS UA WBC 0-2 /HPF (07/30/2011 00:15:00) None Seen 07/30/2011 Normal [facility] [place] URINALYSIS UA Nitrite Negative (07/30/2011 00:15:00) Negative 07/30/2011 Normal [facility] [place] URINALYSIS UA Leuk Est Negative (07/30/2011 00:15:00) Negative 07/30/2011 Normal [facility] [place] URINALYSIS UA Glucose Negative (07/30/2011 00:15:00) Negative 07/30/2011 Normal [facility] [place] URINALYSIS UA Ketones Negative *NA* (07/30/2011 00:15:00) Negative 07/30/2011 NA [facility] [place] URINALYSIS UA Bili Negative *NA* (07/30/2011 00:15:00) Negative 07/30/2011 NA [facility] [place] URINALYSIS UA Blood Large *ABN* (07/30/2011 00:15:00) Negative 07/30/2011 ABN [facility] [place] URINALYSIS UA Urobilinogen 0.2 0.1 - 1.0 07/30/2011 Normal [facility] [place] URINALYSIS UA Turbidity Clear (07/30/2011 00:15:00) Clear 07/30/2011 Normal [facility] [place] URINALYSIS UA Spec Grav <=1.030 07/30/2011 NA [facility] [place] URINALYSIS UA pH 7.0 5.0 - 8.0 07/30/2011 Normal [facility] [place] URINALYSIS UA Protein Trace *ABN* (07/30/2011 00:15:00) Negative 07/30/2011 ABN [facility] [place] URINALYSIS UA Color pale pink Yellow 07/30/2011 NA [facility] [place] URINALYSIS UA Bacteria Occasional /HPF (05/19/2011 13:20:00) None Seen 05/19/2011 Normal [facility] [place] URINALYSIS UA RBC 0-2 /HPF (05/19/2011 13:20:00) 0 - 2 05/19/2011 Normal [facility] [place] URINALYSIS UA WBC 0-2 /HPF (05/19/2011 13:20:00) None Seen 05/19/2011 Normal [facility] [place] URINALYSIS UA Sq Epi Few /LPF (05/19/2011 13:20:00) Few 05/19/2011 Normal [facility] [place] URINALYSIS UA Blood Negative (05/19/2011 13:20:00) Negative 05/19/2011 Normal [facility] [place] URINALYSIS UA Urobilinogen 0.2 0.1 - 1.0 05/19/2011 Normal [facility] [place] URINALYSIS UA Nitrite Negative (05/19/2011 13:20:00) Negative 05/19/2011 Normal [facility] [place] URINALYSIS UA Leuk Est Negative (05/19/2011 13:20:00) Negative 05/19/2011 Normal [facility] [place] URINALYSIS UA Glucose Negative (05/19/2011 13:20:00) Negative 05/19/2011 Normal [facility] [place] URINALYSIS UA Protein 100 mg/dL *ABN* (05/19/2011 13:20:00) Negative 05/19/2011 ABN [facility] [place] URINALYSIS UA Bili Negative *NA* (05/19/2011 13:20:00) Negative 05/19/2011 NA [facility] [place] URINALYSIS UA Ketones Negative *NA* (05/19/2011 13:20:00) Negative 05/19/2011 NA [facility] [place] URINALYSIS UA Spec Grav 1.025 <=1.030 05/19/2011 Normal [facility] [place] URINALYSIS UA pH 6.5 5.0 - 8.0 05/19/2011 Normal [facility] [place] URINALYSIS UA Color Yellow *NA* (05/19/2011 13:20:00) Yellow 05/19/2011 NA [facility] [place] URINALYSIS UA Turbidity Clear (05/19/2011 13:20:00) Clear 05/19/2011 Normal [facility] [place] CHEMISTRY CK MB 2.4 0.5 - 3.6 05/19/2011 Normal [facility] [place] CHEMISTRY Potassium Lvl 4.3 3.5 - 5.1 05/19/2011 Normal [facility] CHEMISTRY CO2 32 24 - 32 05/19/2011 Normal [facility] CHEMISTRY Calcium Lvl 8.6 8.5 - 10.5 05/19/2011 Normal [facility] CHEMISTRY Chloride Lvl 102 95 - 109 05/19/2011 Normal [facility] CHEMISTRY Sodium Lvl 140 135 - 145 05/19/2011 Normal [facility] CHEMISTRY BUN 14 7 - 22 05/19/2011 Normal [facility] [place] CHEMISTRY Creatinine Lvl 1.1 0.5 - 1.4 05/19/2011 Normal [facility] CHEMISTRY A/G Ratio 1.1 0.7 - 1.6 05/19/2011 Normal [facility] CHEMISTRY AGAP 10.3 10.0 - 20.0 05/19/2011 Normal [facility] CHEMISTRY B/C Ratio 13 6 - 25 05/19/2011 Normal [facility] [place] CHEMISTRY Globulin 3.4 2.0 - 4.0 05/19/2011 Normal [facility] [place] CHEMISTRY AST 14 0 - 37 05/19/2011 Normal [facility] [place] CHEMISTRY Bili Total 0.5 0.2 - 1.3 05/19/2011 Normal [facility] [place] CHEMISTRY Total Protein 7.1 6.4 - 8.4 05/19/2011 Normal [facility] CHEMISTRY ALT 33 0 - 65 05/19/2011 Normal [facility] CHEMISTRY Alk Phos 44 39 - 136 05/19/2011 Normal [facility] [place] CHEMISTRY Albumin Lvl 3.7 3.5 - 5.0 05/19/2011 Normal [facility] [place] CHEMISTRY Glucose Lvl 145 70 - 99 05/19/2011 [facility] <sup>2</sup>Interpretive Data: Adult reference range values reflect the clinical guidelines of the [employer]. [facility] [place] CHEMISTRY Total CK 247 12 - 191 05/19/2011 HI [facility] [place] CHEMISTRY Troponin-I <0.02 0.00 - 0.40 05/19/2011 Normal [facility] [place] CHEMISTRY CK MB Index 1.0 0.0 - 2.5 05/19/2011 Normal [facility] [place] HEMATOLOGY MCHC 32.9 32.0 - 36.0 05/19/2011 Normal [facility] [place] HEMATOLOGY MCH 31.0 27.0 - 31.0 05/19/2011 Normal [facility] [place] HEMATOLOGY MCV 94.2 80.0 - 94.0 05/19/2011 HI [facility] [place] HEMATOLOGY WBC 8.2 3.7 - 10.4 05/19/2011 Normal [facility] [place] HEMATOLOGY MPV 7.9 7.4 - 10.4 05/19/2011 Normal [facility] [place] HEMATOLOGY Platelet 215 133 - 450 05/19/2011 Normal [facility] [place] HEMATOLOGY RDW 13.0 11.5 - 14.5 05/19/2011 Normal [facility] [place] HEMATOLOGY Hct 46.9 42.0 - 54.0 05/19/2011 Normal [facility] Hgb 15.4 14.0 - 18.0 05/19/2011 Normal [facility] RBC 4.98 4.70 - 6.10 05/19/2011 Normal [facility] PTT 24.8 22.9 - 35.8 05/19/2011 Normal <sup>4</sup>Interpretive Data: Heparin Therapeutic Range: 57 - 92 Seconds [facility] [place] HEMATOLOGY PT 13.5 12.0 - 14.7 05/19/2011 Normal [facility] [place] HEMATOLOGY INR 1.03 0.85 - 1.17 05/19/2011 Normal <sup>3</sup>Interpretive Data: RECOMMENDED RANGES FOR PROTIME INR: 2.0-3.0 for most medical and surgical thromboembolic states. 2.5-3.5 for artificial heart valves and recurrent embolism. INR SHOULD BE USED ONLY FOR PATIENTS ON STABLE ANTICOAGULANT THERAPY. [facility] [place] HEMATOLOGY Monocytes # 0.6 0.0 - 0.8 05/19/2011 Normal [facility] [place] HEMATOLOGY Lymphocytes # 1.1 1.0 - 5.5 05/19/2011 Normal [facility] [place] HEMATOLOGY Eosinophils # 0.0 0.0 - 0.5 05/19/2011 Normal [facility] [place] HEMATOLOGY Basophils # 0.0 0.0 - 0.2 05/19/2011 Normal [facility] [place] HEMATOLOGY Segs-Bands # 6.5 1.5 - 8.1 05/19/2011 Normal [facility] [place] HEMATOLOGY Basophils 0.2 0.0 - 1.0 05/19/2011 Normal [facility] [place] HEMATOLOGY Eosinophils 0.2 0.0 - 4.0 05/19/2011 Normal [facility] [place] HEMATOLOGY Segs 79.5 45.0 - 75.0 05/19/2011 HI [facility] [place] HEMATOLOGY Monocytes 6.8 2.0 - 12.0 05/19/2011 Normal [facility] [place] HEMATOLOGY Lymphocytes 13.3 20.0 - 40.0 05/19/2011 LOW [facility] [place] Microbiology Culture: Blood 05/19/2011 [facility] [place] Microbiology Culture: Blood 05/19/2011 [facility] [place] BEDSIDE GLUCOSE TESTING Gluc POC Lifscn 168 70 - 99 05/19/2011 [facility] <sup>1</sup>Interpretive Data: Upper Reportable Limit: 200 mg/dL. [facility] [place] Pathology Reports No Data Provided for This [...] disease. 2. No hydronephrosis. SL: 23 11/02/2013 [facility] Consultation Notes No Data Provided for This Section Discharge Summaries No Data Provided for This Section History and Physicals No Data Provided for This Section Vital Signs Vital Sign Value Date Comments Source Weight 106.818 07/30/2011 [facility] [place] Height 177.80 cm 07/30/2011 [facility] Weight 109.091 05/23/2011 [facility] [place] Height 180.34 cm 05/23/2011 [facility] [place] Height 180.34 cm 05/19/2011 [facility] Weight 106.818 05/19/2011 [facility] Encounters Location Location Details Encounter Type Encounter Number Reason For Visit Attending Provider ADM Date DC Date Status Source Not Sent Emergency [id number] JERSON CARMONA 05/19/2011 05/19/2011 Discharged [facility] [place] Not Sent Emergency [id number] JOSELITO BAJWA 05/22/2011 05/22/2011 Discharged [facility] [place] Not Sent Emergency [id number] ANKUR JAVED 07/29/2011 07/30/2011 Discharged [facility] OD [id number] 599.70 - HEMATURIA NOS ALO CORTEZ 08/22/2011 Active [facility] Out[facility] Di[facility] Services [id number] Thony Bhatton 11/02/2013 11/03/2013 [facility] [place] [facility] Patients [id number] Alessandra Mak 11/07/2015 12/07/2015 [facility] [place] Procedures No Data Provided for This Section Assessment and Plan No Data Provided for This Section Plan of Care No Data Provided for This Section Social History Social History Date Source No data available for this section 12/07/2015 [facility] [place] Family History No Data Provided for This Section Advance Directives No Data Provided for This Section Functional Status No Data Provided for This Section
[2018-09-25 11:43] VITALS: BP 179/83
[2018-09-25] MEDS ORDERED: ACETAMINOPHEN/CODEINE 300MG - 30MG TAB PO PRN (11:45)
[2018-09-25] MEDS ORDERED: PROPOFOL IV EMULSION 10 MG/ML 20 ML VIAL ONE (12:04)
[2018-09-25] MEDS ORDERED: SEVOFLURANE INHAL SOLN 250 ML PEN BTL ONE (12:04)
[2018-09-25] MEDS ORDERED: LIDOCAINE HCL 2% LOCAL INJ 5 ML SDV VIAL INJ ONE (12:04)
[2018-09-25] MEDS ORDERED: ONDANSETRON HCL INJ 2MG/ML 2ML 2 MG/ML VIAL ONE (12:04)
[2018-09-25] MEDS ORDERED: DEXAMETHASONE SOD PHOS INJ 4 MG/ML VIAL ONE (12:04)
[2018-09-25] MEDS: SODIUM CHLORIDE 0.45% 1,000 ML IV SCH ×2 (12:21→21:45)
--- NOTE | 2018-09-25 13:00 | NUR ---
pt arrived to unit umang even and unlabored at this time no distress noted, pt oriented to room and call light, bed in lowest position, bed rails up x2, pt has CBI going at this time, fluid in [place] clear light pink, pt states no pain nor discomfort at this time.
[2018-09-25 15:47] VITALS: BP 143/67
[2018-09-25] MEDS: CARVEDILOL 12.5 MG TAB PO SCH (16:58)
--- NOTE | 2018-09-25 19:29 | NUR ---
report given to oncoming nurse. pt stable at this time.
[2018-09-25] MEDS ORDERED: MIDAZOLAM HCL 2 MG/2 ML VIAL ONE (19:44)
[2018-09-25] MEDS ORDERED: FENTANYL CITRATE/PF 100MCG/2 ML INJ ONE (19:44)
[2018-09-25 20:10] VITALS: BP 126/57
[2018-09-25] MEDS: BACLOFEN 10 MG TAB PO SCH (20:55)
[2018-09-25] MEDS: TRIMETHOPRIM/SULFAMETHOXAZOLE 160-800 MG TAB PO SCH (20:55)
[2018-09-25] MEDS ORDERED: LOSARTAN POTASSIUM 100 MG TAB PO SCH (21:00)
[2018-09-25] MEDS ORDERED: ATORVASTATIN 20 MG TAB PO SCH (21:00)
[2018-09-25] MEDS ORDERED: TRAZODONE HCL 50 MG TAB PO SCH (21:00)
[2018-09-25] MEDS ORDERED: MONTELUKAST SODIUM 10 MG TAB PO SCH (21:00)
[2018-09-25] MEDS ORDERED: TRAMADOL HCL 50 MG TAB PO PRN (22:00)
[2018-09-25 22:17] VITALS: BP 126/57
[2018-09-25] MEDS ORDERED: GLIMEPIRIDE 2 MG TAB PO SCH (22:30)
[2018-09-25] MEDS ORDERED: MORPHINE SULFATE INJ 4 MG/ML INJ 1ML IV ONE (22:30)
--- NOTE | 2018-09-25 22:36 | NUR ---
spoke with dr. ritter regarding patients continued c/o pain after prn pain medications given. 1x order for morphine received and entered. also received orders to restart diabetic medication, first dose tonight. verbal orders to hold irrigation when current bag is complete. orders entered and to be implemented.
[2018-09-26 00:23] VITALS: BP 179/79
--- NOTE | 2018-09-26 01:52 | NUR ---
irrigation bags empty, irrigation held at this time per verbal orders from dr. ritter. urine at this time clear, free of blood and clots.
[2018-09-26 04:00] VITALS: BP 196/86
[2018-09-26] MEDS: CARVEDILOL 12.5 MG TAB PO SCH (05:37)
[2018-09-26 05:51] LABS: ANION GAP 12.1 mmol/L (8-16); BLOOD UREA NITROGEN 18 mg/dL (7-26); BUN/CREATININE RATIO 16 (6-25); CALCIUM 8.7 mg/dL (8.4-10.2); CARBON DIOXIDE 28 mmol/L (22-29); CHLORIDE 97 mmol/L (98-107); CREATININE, SERUM 1.15 mg/dL (0.72-1.25); EST GLOMERULAR FILTRATION RATE > 60 ML/MIN (60-); GLUCOSE 214 mg/dL (74-118); POTASSIUM 4.1 mmol/L (3.5-5.1); SODIUM 133 mmol/L (136-145)
[2018-09-26] MEDS ORDERED: LEVOTHYROXINE SODIUM 50 MCG TAB PO SCH (06:00)
--- NOTE | 2018-09-26 07:03 | NUR ---
bedside report given to oncoming nurse. patient in stable condition. urine light pink.
[2018-09-26] MEDS: SODIUM CHLORIDE 0.45% 1,000 ML IV SCH (07:45)
[2018-09-26 07:47] VITALS: BP 135/62
[2018-09-26] MEDS: BACLOFEN 10 MG TAB PO SCH (08:46)
[2018-09-26] MEDS: TRIMETHOPRIM/SULFAMETHOXAZOLE 160-800 MG TAB PO SCH (08:46)
[2018-09-26 08:53] VITALS: BP 135/62
[2018-09-26] MEDS ORDERED: MYBETRIQ 50 MG PO SCH (09:00)
[2018-09-26] MEDS ORDERED: PANTOPRAZOLE SOD 40 MG TABEC PO SCH (09:00)
[2018-09-26] MEDS ORDERED: CARVEDILOL 12.5 MG TAB PO SCH (09:00)
[2018-09-26] MEDS ORDERED: FINASTERIDE 5 MG TAB PO SCH (09:00)
[2018-09-26] MEDS ORDERED: SOLIFENACIN SUCCINATE 5 MG TAB PO SCH (09:00)
[2018-09-26] MEDS ORDERED: TAMSULOSIN HCL 0.4 MG CAP PO SCH (09:00)
[2018-09-26] MEDS ORDERED: BACLOFEN 10 MG TAB PO PRN (09:00)
[2018-09-26] MEDS ORDERED: DULOXETINE HCL 30 MG DELAYED RELEASE PO SCH (09:00)
--- NOTE | 2018-09-26 10:02 | NUR ---
SPOKE WITH MD BELL, MADE AWARE THAT URINE PINK TINGED WITH SMALL INTERMITTENT CLOTS, ORDERS NOTED
--- NOTE | 2018-09-26 10:47 | NUR ---
CHAU WITH PINK TINGED URINE NOTED, DRAINED 640ML, CHAU DC'D PER MD ORDER, TOLERATED WELL, SITTING IN BS CHAIR, CALL LIGHT WITHIN REACH
[2018-09-26 11:36] VITALS: BP 125/58
--- NOTE | 2018-09-26 12:23 | NUR ---
EDUCATED ABOUT IMM, SIGNED, FILED IN CHART, WITH COPY LEFT WITH FAMILY AT BEDSIDE.
--- NOTE | 2018-09-26 13:00 | NUR ---
PT TOLERATED LUNCH WELL, AMBULATED WITH STEADY GAIT IN HALLWAY, BACK IN ROOM , PT VOIDED PARTLY ON FLOOR AND USED URINAL, URINE PINK TINGED, ASSISTED TO CLEAN UP, CHANGED GOWN, PT NOW SITTING IN CHAIR, CALL LIGHT WITHIN REACH
[2018-09-26 15:50] VITALS: BP 130/61
[2018-09-26] MEDS ORDERED: BACTRIM DS TAB1 EACH PO (17:19)
[2018-09-26] MEDS ORDERED: TYLENOL WITH C1 EACH PO (17:20)
--- NOTE | 2018-09-26 17:42 | NUR ---
SPOKE WITH MD BELL, MADE AWARE THAT PT HAS VOIDED MULTIPLE TIMES, ORDERS NOTED, DISCHARGE INSTRUCTIONS REVIEWED WITH PT AND FAMILY, VERBALIZED UNDERSTANDING, WHEELED OFF UNIT VIA WC FOR DISCHARGE, NO CHANGE IN CONDITION
[2018-09-28] MEDS ORDERED: TRULICITY 1.5 MG SC SCH (09:00)
--- NOTE | 2018-10-12 14:18 | Operative Report ---
DATE OF PROCEDURE: 09/25/2018 SURGEON: Tim Vyas MD PREOPERATIVE DIAGNOSIS: Bladder outlet obstruction, unresponsive to maximal medical therapy. POSTOPERATIVE DIAGNOSIS: Bladder outlet obstruction, unresponsive to maximal medical therapy. OPERATIVE PROCEDURE PERFORMED: Cystoscopy and transurethral resection of the prostate. ANESTHESIA: General anesthesia. ESTIMATED BLOOD LOSS: Minimal. INDICATIONS: Mr. Rios Watson is a 78-year-old black gentleman with a long history of bladder outlet obstruction, which has failed conservative management. He now presents for definitive surgical management of this problem. PROCEDURE IN DETAIL: The patient was brought into the operative room, placed in supine position. After initiation of general anesthesia, he was placed in dorsal lithotomy position and prepped and draped in the usual sterile fashion. Cystourethroscopy was performed using 20-Malaysian cystoscope. The anterior and posterior urethra were noted to be normal. 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 There was a moderate-sized median lobe, which was seen to be obstructing. The bladder was entered with [id number] difficulty. Upon entrance into the bladder, the ureteral orifices were in normal anatomical position and produced largely clear efflux. There were grade 2 trabeculations noted throughout with early cellule formation particularly on the posterior wall. There were no stones or mucosal lesions identified. The bladder was left full and the cystoscope and sheath were removed. A 26-Malaysian resectoscope sheath was then placed in a retrograde fashion and [employer] resectoscope was used to perform the procedure. Beginning at the 1 o'clock position and proceeding to 6 o'clock position in a clockwise fashion, all the adenomatous tissue between the bladder neck and the veru was resected down to the level of the surgical capsule. There was no gross penetration or perforation of the capsule noted. Hemostasis was obtained using electrocautery device. A similar procedure was performed on the contralateral side in a counter-clockwise fashion. Beginning at the 11 o'clock position and again ending at the 6 o'clock position. Again, there was no gross penetration or perforation of the capsule noted. Again, hemostasis was obtained using electrocautery device. The residual tissue seen on the roof and floor of the gland were then dissected free and the [employer] evacuator was used to remove all chips. These were sent to pathology for microscopic analysis. Once adequate hemostasis was secured, the bladder was left full and the resectoscope and sheath were removed. The patient was noted to have brisk urinary flow with coude. A 24-Malaysian three-way coude catheter was then placed in a retrograde fashion and the balloon was inflated with 45 mL of sterile water. The urinary efflux was noted be blood tinged. The patient was returned to supine position and started on continuous bladder irrigation. He was transferred to a bed and taken to the postanesthesia care unit in good condition. Of note, the needle and instrument count were correct at the conclusion of the case. MD KEVIN Carey/MODL /[id number]
== END 2018-09-26 17:40 | disposition home or self-care (01) ==
LOC: OR 06:40 → PACU V 10:04 → MED/SURG 11:20
PROVIDERS: ADMIT Urology; ATTEND Urology
DX: N32.0 Bladder-neck obstruction (principal); Z01.810 Encounter for preprocedural cardiovascular examination; Z01.812 Encounter for preprocedural laboratory examination; Z01.811 Encounter for preprocedural respiratory examination; E78.5 Hyperlipidemia, unspecified; E03.9 Hypothyroidism, unspecified; E11.9 Type 2 diabetes mellitus without complications; I25.10 Atherosclerotic heart disease of native coronary artery without angina pectoris; I10 Essential (primary) hypertension; Z79.84 Long term (current) use of oral hypoglycemic drugs; N40.1 Benign prostatic hyperplasia with lower urinary tract symptoms; N13.8 Other obstructive and reflux uropathy
CPT/HCPCS: 36415 ×3; 52601; 80048 ×2; 82948 ×2; 85025; 88305; 93005; G0378 ×2; J0696; J1100; J2001; J2250; J2270; J2405; J2704; J3010; S0164